=== PATIENT | female | born 1950 | race American Indian/Alaskan Native ===

== ENCOUNTER 2017-02-19 08:30 | Inpatient (IN) | payer MEDICARE ==
--- NOTE | 2017-02-12 11:00 | Anesthesia Consultation ---
Anesthesia Consult and Med Hx Date of service: 02/12/17 - Airway Anesthetic Teeth Evaluation: Dentures (upper and lower), Edentulous ROM Head & Neck: Adequate Mental/Hyoid Distance: Adequate Mallampati Class: Class II Intubation Access Assessment: Probably Good - Pre-Operative Health Status ASA Pre-Surgery Classification: ASA3 Proposed Anesthetic Plan: Epidural, Spinal Nerve Block: Femoral - Pulmonary Hx Smoking: Yes (CIGARETTES 1 PPW X 34 YRS (quit 2.5 yr)) Hx Asthma: Yes (FOR 24 YRS, stable w/ rare PRN inhaler use) SOB: No COPD: No Hx Sleep Apnea: No - Cardiovascular System Hx Hypertension: Yes (x 10 yrs, controlled w/ meds, no CP) Hx Coronary Artery Disease: No Hx Heart Attack/AMI: No Hx Angina: No Hx Heart Murmur: Yes (THE NURSE SAID SHE HEARD IT, PCP NEVER MENTIONED) Hx Peripheral Vascular Disease: No - Central Nervous System Hx Neuromuscular Disorder: Yes (arthritis) Hx Seizures: No CVA: No Hx Psychiatric Problems: No - Gastrointestinal Hx Gastroesophageal Reflux Disease: Yes (Mild) - Endocrine Hx End Stage Renal Disease: No Hx Cirrhosis: No Hx Liver Disease: No Hx Insulin Dependent Diabetes: No Hx Non-Insulin Dependent Diabetes: No - Other Systems Hx Alcohol Use: Yes (2 GLASSES OF WINE PER DAY) Hx Substance Use: No Hx Cancer: No
[2017-02-12 11:15] LABS: Basophils % (Auto) 0.7 % (0.0-1.8); Eosinophils % (Auto) 3.9 % (0.0-4.3); Hematocrit 38.1 % (30.3-42.9); Hemoglobin 12.6 gm/dl (10.1-14.3); Mean Corpuscular HGB Conc 33 % (30-34); Mean Corpuscular Hemoglobin 27 pg (28-32); Mean Corpuscular Volume 82 fl (79-97); Platelet Count 217 K/mm3 (140-440); Red Blood Count 4.65 M/mm3 (3.65-5.03); Red Cell Distribution Width 13.8 % (13.2-15.2); White Blood Count 6.6 K/mm3 (4.5-11.0)
[2017-02-12 11:30] LABS: Alanine Aminotransferase 14 units/L (7-56); Albumin/Globulin Ratio 1.2 %; Alkaline Phosphatase 87 units/L (35-129); Anion Gap 15 mmol/L; BUN/Creatinine Ratio 16.66; Bilirubin,Total 0.6 mg/dL (0.1-1.2); Blood Urea Nitrogen 10 mg/dL (7-17); Calcium 9.7 mg/dL (8.4-10.2); Carbon Dioxide 27 mmol/L (22-30); Chloride 101.1 mmol/L (98-107); Glucose 99 mg/dL (65-100); Potassium 3.7 mmol/L (3.6-5.0); Sodium 139 mmol/L (137-145); Total Protein 7.4 g/dL (6.3-8.2)
--- NOTE | 2017-02-18 21:07 | History and Physical Report ---
History of Present Illness Date of examination: 02/18/17 Date of admission: 02/19/17 Chief complaint: Pain right leg, history of revision to an arthroplasty. Pain is progressively worsening. History of present illness: Painful right total knee arthroplasty, revision type with pain over the anterior middle aspect of the tibia, knee joint with difficulty bearing weight. Progressively worsening over the last several months. Examination in the office revealed thinning of the anterior medial tibial cortex, patient is being admitted for revision of the tibial component, polyethylene exchange. Past History Past Medical History: COPD, hypertension Past Surgical History: total knee replacement Medications and Allergies Allergies Allergy/AdvReac Type Severity Reaction Status Date / Time No Known Allergies Allergy Verified 05/17/16 10:54 Home Medications Medication Instructions Recorded Confirmed Last Taken Type Albuterol Sulfate [Ventolin HFA] 2 puff IH Q4H PRN #1 hfa.aer.ad 03/25/1405/17/16 Rx Atorvastatin Calcium [Lipitor] 20 mg PO QHS 05/28/14 02/10/17 05/17/16 History Triamter/Hctz 37.5-25 mg 1 each PO DAILY 05/28/14 02/10/17 05/17/16 History [Maxzide-25] amLODIPine [Norvasc] 5 mg PO DAILY 05/28/14 02/10/17 05/17/16 History Meloxicam [Mobic] 15 mg PO PRN PRN 04/05/15 02/10/17 08/13/16 History Montelukast [Singulair] 10 mg PO QPM 04/05/15 02/10/17 05/17/16 History Aspirin [Adult Low Dose Aspirin EC] 81 mg PO QDAY 10/11/15 02/10/17 05/17/16 History HYDROcodone/APAP 5-325 [[place] 1 each PO Q6HR PRN #12 tablet 05/18/16 02/10/17 Unknown Rx 5/325] Active Meds: Active Medications Celecoxib (Celebrex) 200 mg PO PREOP NR Stop: 02/19/17 23:59 Famotidine (Pepcid) 20 mg IV PREOP NR Stop: 02/19/17 23:59 Gabapentin (Neurontin) 150 mg PO PREOP NR Stop: 02/19/17 23:59 Lactated Ringer's (Lactated Ringers) 1,000 mls @ 100 mls/hr IV DIRECT [facility] Vancomycin HCl (Vancomycin/Ns 1 Gm/250 Ml) 1 gm in 250 mls @ 166.667 mls/hr IV PREOP NR PRN Reason: Protocol Stop: 02/20/17 00:01 Midazolam HCl (Versed) 2 mg IV PREOP NR Stop: 02/19/17 23:59 Review of Systems All systems: negative Exam - Constitutional General appearance: Present: no acute distress, well-nourished - EENT Eyes: Present: PERRL ENT: hearing intact, clear oral mucosa - Neck Neck: Present: supple, normal ROM - Respiratory Respiratory effort: normal Respiratory: bilateral: CTA - Cardiovascular Heart Sounds: Present: S1 & S2. Absent: rub, click - Extremities Extremities: abnormal (Right knee with tenderness over the anterior medial proximal third of the tibia, 1+ medial lateral laxity. No joint effusion, range of motion 0110 degrees. No popliteal masses, patellofemoral joint appeared stable.) Peripheral Pulses: within normal limits - Abdominal General gastrointestinal: Present: soft, non-tender, non-distended, normal bowel sounds Female genitourinary: Present: normal - Integumentary Integumentary: Present: clear, warm, dry - Musculoskeletal Musculoskeletal: gait normal, strength equal bilaterally - Psychiatric Psychiatric: appropriate mood/affect, intact judgment & insight - Neurologic Neurologic: CNII-XII intact, moves all extremities Results - Labs CBC & Chem 7: 02/12/17 10:50 02/12/17 10:50 Assessment and Plan - Patient Problems (1) Painful total knee replacement Status: Acute Qualifiers: Encounter type: initial encounter Qualified Code(s): T84.84XA - Pain due to internal orthopedic prosthetic devices, implants and grafts, initial encounter; Z96.659 - Presence of unspecified artificial knee joint Plan to address problem: Revision of tibial component, with a longer intramedullary stem with cortical engagement and polyethylene exchange. Procedure, complications and outcome discussed with.
[~2017-02-19 08:30] MED LIST: LACTATED RINGERS 1,000 ML IV SCH; NEURONTIN PO NR; PEPCID IV NR; VANCOMYCIN/NS 1 GM/250 ML 1 GM/250 ML BAG IV NR; VERSED IV NR
--- NOTE | 2017-02-19 10:45 | Anesthesia Day of Surgery ---
Anesthesia Day of Surgery - Day of Surgery Patient Examined: Yes Patient H&P Reviewed: Yes Patient is NPO: Yes Beta Blockers: No
--- NOTE | 2017-02-19 12:03 | Admit Criteria Form ---
Admission Criteria Documentation: AMBULATORY SURGERY EXCEPTION CRITERIA Ambulatory Surgery Exception Criteria ( Place 'X' for any and all applicable criteria): Surgery or procedure performed on ambulatory basis may require inpatient stay for[A] ANY ONE of the following(1)(2)(3)(4)(5)(6)(7)(8)(9): [X] I. A preoperative situation, condition, or finding that warrants inpatient stay as indicated by ANY ONE of the following: [] a) Inpatient care needed because of severity of a disease or condition rather than the surgery (eg, severe cardiac or respiratory disease, severe infection) (15) (16 ) (17) (18) [] b) Emergent procedure (eg, angioplasty for acute ischemia)(19) [] c) Complex surgical approach or situation as indicated by ANY ONE of the following(3): [] i) Open approach needed instead of usual endoscopic, transcatheter, or other less invasive procedure [] ii) Difficult approach because of previous operation [] iii) Airway monitoring required after open neck procedures(20)(21) [] iv) Large mass requiring unusually extensive dissection [] v) Additional complicating feature requiring inpatient care (eg, drain management)(22(23): [X] d) Major surgery in a pt with high anesthetic risk as indicated by ANY ONE of the following (2)(3)(5)(7)(8): [X] i) ASA risk class III or higher (severe systemic disease impairing function) [D] [] ii) Advanced age (eg, older than 85 years)(14)(24) [] iii) Symptomatic heart failure(25) [] iv) Symptomatic asthma or COPD(8)(21) [] v) Morbid obesity with hemodynamic or respiratory problems(20)( 21)(26)(27) [] vi) Obstructive sleep apnea(20)(21) [] vii) Former premature infants who are younger than 60 weeks [] viii) High risk for severe postoperative abnormalities (eg, severe postoperative hypocalcemia after parathyroidectomy for severe hyperparathyroidism)(27)( 28) [] ix) Unstable angina(25) [] e) Drug-related risk requiring inpatient stay as indicated by ANY ONE of the following(5)(10)(14)(32)(33) [] i) Procedure requires discontinuing drugs or other therapy (eg , antiarrhythmic medication, antiseizure medication), which necessitates inpatient observation or treatment.(18)(31) [] ii) Major surgery and high risk drug use as indicated by ANY ONE of the following: [] 1) Active abuse of cocaine or similar drug [] 2) Monoamine oxidase inhibitor use [] 3) Other drug identified as posing risk [] f) Inadequate outpatient care situation as indicated by ANY ONE of the following(5)(10)(14)(32)(33) [] i) Patient lives remote from medical facility and procedure has urgent complication potential, and temporary nearby residence cannot be arranged [] ii) Patient will have postprocedure incapacitation and inadequate assistance at home, or alternative level of care cannot be arranged. [] iii) Patient will have long general anesthesia or procedure side effect resolution time, and competent person to stay with patient on first postoperative night at home or alternative level of care cannot be arranged. []iv) Other inadequate outpatient situation that cannot be handled by other means [] II. A perioperative event, condition, or finding that warrants inpatient stay as indicated by ANY ONE of the following (1)(2)(3): [] a) Inadequate physiologic recovery: cardiovascular, respiratory, or hemodynamic status not normal or near preoperative baseline(18) [] b) Hemodynamic instability [] c) Patient not alert with near normal or baseline mental status [] d) Temperature not normal or as expected and not appropriate for outpatient treatment of condition [] e) Ambulatory or appropriate activity level status not yet achieved post procedure [E](34)(35)(36) [] f) Operative site not appropriate (eg, unexpected or excessive drainage or bleeding) [] g) Postoperative effects not resolved or adequately managed (eg, significant pain or vomiting not appropriate for outpatient or next level of care)(10)(12) [] h) Complicating features requiring inpatient care as indicated by ANY ONE of the following(37): [] i) Severe complications of procedure (eg, bowel injury, airway compromise, vascular injury,severe hemorrhage) [] ii) Extensive (eg, dissection far beyond usual scope of procedure ) or prolonged (eg, 120 minutes beyond usual) surgery needed requiring inpatient postoperative care [] iii) Conversion to an open or complex procedure that requires inpatient care (eg, open vs laparoscopic cholecystectomy, abdominal vs vaginal hysterectomy)(38) [] iv) Comorbid condition or test result identified during or post procedure that requires inpatient care (7) [] v) Malignant hyperthermia(30) [] vi) Other complicating feature requiring inpatient care(22)(23) Inpatient stay may be needed until ALL of the following are present (1)(2)(3)(4) (5)(6)(10)(14)(33)(40): []a) Physiologic recovery: cardiovascular, respiratory, and hemodynamic status normal or near preoperative baseline []b) Hemodynamic stability []c) Patient alert, with near normal or baseline mental status []d) Temperature appropriate: patient afebrile or temperature appropriate for outpt treatment of condition []e) Activity level appropriate: ambulatory or appropriate activity level post procedure []f) Operative site appropriate as indicated by ALL of the following: []i) Site dry or with expected drainage []ii) Any blood noted is as expected for procedure. []g) Postoperative effects resolved or managed as indicated by ALL of the following: []i) Pain management appropriate for outpatient (or next level of) care(10) []ii) Minimal nausea and vomiting: if present, successfully treated with oral medication(12) []iii) Headache, dizziness, or drowsiness (if present) are mild. []h) Voiding status acceptable as indicated by ANY ONE of the following: []i) Voiding spontaneously []ii) No voiding but instructions given for follow-up in 6 to 8 hours []iii) Urinary catheter in place, and instructions given for follow-up []i) Complicating features requiring inpatient care manageable at a lower level of care(37) []j) Comorbid conditions manageable at a lower level of care(37) The original [employer] content created by [employer] has been revised. The portions of the content which have been revised are identified through the use of italic text or in bold, and [employer] [employer] has neither reviewed nor approved the modified material. All other unmodified content is copyright [employer] Please see references footnoted in the original [employer] edition 2016 Admission Criteria Met: Yes
[2017-02-19] MEDS ORDERED: NEOSPORIN GU IR ONE ×2 (13:26→15:44)
[2017-02-19] MEDS ORDERED: XYLOCAINE MPF 2% ONE ×4 (14:10→17:32)
[2017-02-19] MEDS ORDERED: DIPRIVAN 10 MG/ML IV ONE ×2 (14:10→15:26)
[2017-02-19] MEDS ORDERED: MARCAINE-EPI 0.5%-1:200,000 INFILTRATI ONE (14:19)
[2017-02-19] MEDS ORDERED: VERSED ONE (15:21)
[2017-02-19] MEDS ORDERED: NACL 0.9% IR ONE ×2 (15:44)
[2017-02-19] MEDS ORDERED: PROAIR IH PRN (17:10)
[2017-02-19] MEDS ORDERED: PROVENTIL IH PRN (17:21)
[2017-02-19] MEDS ORDERED: LACTATED RINGERS 1,000 ML ONE (17:32)
[2017-02-19] MEDS ORDERED: SINGULAIR PO SCH (18:00)
--- NOTE | 2017-02-19 18:34 | Post Anesthesia Evaluation ---
- Post Anesthesia Evaluation Patient Participated: Yes Airway Patent: Yes Stable Respiratory Function: Yes Nausea/Vomiting: No Temp > 96.8F: Yes Pain Manageable: Yes Adequeate Hydration: Yes Anesthesia Complications: No
[2017-02-19] MEDS ORDERED: MORPHINE IV PRN (20:05)
[2017-02-19] MEDS ORDERED: SODIUM CHLORIDE FLUSH SYRINGE 10 ML IV PRN (20:05)
[2017-02-19] MEDS ORDERED: TORADOL IV PRN (20:05)
[2017-02-19] MEDS ORDERED: TYLENOL PO PRN (20:05)
[2017-02-19] MEDS ORDERED: PHENERGAN PR PRN (20:05)
[2017-02-19] MEDS ORDERED: AMBIEN PO PRN (20:05)
--- NOTE | 2017-02-19 21:24 | Operative Report ---
PREOPERATIVE DIAGNOSIS: Painful total knee arthroplasty, right side. POSTOPERATIVE DIAGNOSIS: Painful total knee arthroplasty, right side with impending stem penetration into the medial tibial cortex. OPERATIVE PROCEDURE: Revision tibial component and polyethylene exchange, total knee arthroplasty, right side. SURGEON: Neeru Goodson M.D. [employer] OPERATOR: Lindsay Narayan CSA. ANESTHESIA: Regional block with general sedation. TOURNIQUET TIME: One hour and thirty minutes. PROCEDURE IN DETAIL: The patient was taken to surgery suite, satisfactory analgesia obtained with regional block, supplemented with general sedation. Right lower extremity was prepped with ChloraPrep, satisfactorily draped. The correct patient, surgical site, and procedures are confirmed. Tourniquet inflated to 300 mmHg pressure. Incision was made anteriorly over the knee, deepened to the thickness of skin. Medial parapatellar incision was made and the knee joint entered. The knee joint contained approximately 100 mL of fluid with some discoloration of the synovial membrane. Cultures were made for aerobic and anaerobic cultures and Gram stain and tissue specimen for biopsy. The tibial polyethylene was then elevated and was removed. Following this, the tibial component was extracted and the remaining methyl methacrylate was thoroughly debrided. The intramedullary canal of the femur was then reamed to 13 mm diameter to accommodate 150 mm stem. With the reaming was completed, fluoroscopy was carried out showing the reamer engaged into the medullary canal and penetration into the cortex was identified. Following this, with the tibial resection guide in place, tibial surface was then resected. Trial component was applied and the fit appeared satisfactory. However, there was still an approximately 3 mm gap present over the medial tibial plateau. Therefore, it was elected to use a 5 mm augment. With the guide in place, the medial tibial plateau was resected as to allow and augmented tibial plateau with 5 mm spacer. Trial reduction again carried out with the trial component in place. A #3 and 19 mm polyethylene spacer which appeared giving satisfactory stability and fit. The components were removed. Wound was then thoroughly irrigated. The #3 tibial component with a 150 mm stem, 12 mm diameter was cemented in place. Over the medial and anteromedial surfaces had some degree of overlapping, this was built up with methyl methacrylate. Wound was again irrigated to remove any debris. Trial reduction was carried out and the 19 mm thick spacer appeared giving optimal stability and therefore polyethylene was then exchanged to a PCL substituting design polyethylene component, 19 mm thick and was locked in place. Following this, wound was closed in layers in the standard fashion using 0 Vicryl, 2-0 Vicryl and rosamaria. The quadriceps snip which was carried out to prevent patellar tendon rupture was then repaired in the standard fashion using 0 Vicryl. At the completion of procedure, counts were accurate. Total blood loss minimal. Total tourniquet time, 1 hour 30 minutes. Knee appeared stable, both medial and lateral, and anterior and posterior, and postop range of motion 0-120 degrees. JOB# [id number] RVN/NTS
[2017-02-19] MEDS: ZOFRAN IV PRN (22:36)
[2017-02-19] MEDS: ASPIRIN PO SCH (22:40)
[2017-02-19] MEDS: D5W/0.45% NACL/KCL 20 MEQ 20 MEQ/1,000 ML BAG IV SCH (22:40)
[2017-02-19] MEDS: ANCEF/NS 1 GM/50 ML 1 GM/50 ML BAG IV SCH (22:40)
[2017-02-19] MEDS: PERCOCET 5/325 PO PRN (23:10)
[2017-02-20] MEDS: ANCEF/NS 1 GM/50 ML 1 GM/50 ML BAG IV SCH (06:04)
[2017-02-20 06:12] LABS: Hematocrit 34.2 % (30.3-42.9); Hemoglobin 11.4 gm/dl (10.1-14.3)
[2017-02-20 06:31] LABS: Anion Gap 16 mmol/L; Blood Urea Nitrogen 10 mg/dL (7-17); Calcium 8.7 mg/dL (8.4-10.2); Carbon Dioxide 24 mmol/L (22-30); Chloride 101.8 mmol/L (98-107); Glucose 146 mg/dL (65-100); Potassium 3.5 mmol/L (3.6-5.0); Sodium 138 mmol/L (137-145)
[2017-02-20] MEDS: OxyCONTIN PO SCH ×3 (07:06→22:17)
--- NOTE | 2017-02-20 08:44 | XRay Report ---
Right knee 3 views. Findings: A Total knee prosthesis is demonstrated in satisfactory position with no radiographic signs of complications.
[2017-02-20] MEDS ORDERED: LOVENOX SUB-Q SCH (10:00)
[2017-02-20] MEDS ORDERED: MAXZIDE-25 PO SCH (10:00)
[2017-02-20] MEDS ORDERED: NORVASC PO SCH (10:00)
[2017-02-20] MEDS: ZOFRAN IV PRN (11:09)
[2017-02-20] MEDS: THERAGRAN Tab PO SCH (11:12)
[2017-02-20] MEDS: ASPIRIN PO SCH ×2 (11:12→22:17)
[2017-02-20] MEDS: D5W/0.45% NACL/KCL 20 MEQ 20 MEQ/1,000 ML BAG IV SCH ×2 (12:22→22:18)
--- NOTE | 2017-02-20 13:16 | Progress Note ---
Subjective Date of service: 02/20/17 Interval history: 1st POD after total knee arthroplasty Patient is in the bed, relatively comfortable. Pain is well controlled with pain meds. Had near-syncope episode, when ambulated with physical therapist earlier this AM. Latter is most likely attributed to osthostatic hypotention. BP was in the 90s systolic. Feels better now. No anesthesia complications Objective - Constitutional Vitals: Vital Signs - 12hr 02/20/17 02/20/17 02/20/17 02:12 03:57 08:00 Temperature 98.2 F 98.4 F 98.1 F Pulse Rate [ 86 86 78 Brachial] Respiratory 20 20 18 Rate Blood Pressure 132/74 136/74 107/68 [Left Arm] O2 Sat by Pulse 100 100 Oximetry - Labs CBC & Chem 7: 02/20/17 05:49 02/20/17 05:49 Labs: Abnormal lab results 02/20/17 Range/Units 05:49 Potassium 3.5 L (3.6-5.0) mmol/L Creatinine 0.5 L (0.7-1.2) mg/dL Glucose 146 H (65-100) mg/dL
[2017-02-20] MEDS: PERCOCET 5/325 PO PRN ×2 (14:29→20:35)
--- NOTE | 2017-02-20 17:22 | Progress Note ---
Assessment and Plan continue PT and observation, hopefully dc in am Subjective Date of service: 02/20/17 Interval history: c/o nausea and vomiting after getting up earlier today, doing better now... Objective Vital signs: Vital Signs - 12hr 02/20/17 02/20/17 08:00 16:00 Temperature 98.1 F 98.3 F Pulse Rate [ 78 84 Brachial] Respiratory 18 18 Rate Blood Pressure 107/68 115/63 [Left Arm] O2 Sat by Pulse 94 Oximetry - Labs CBC & BMP: 02/20/17 05:49 02/20/17 05:49 Labs: Abnormal lab results 02/20/17 Range/Units 05:49 Potassium 3.5 L (3.6-5.0) mmol/L Creatinine 0.5 L (0.7-1.2) mg/dL Glucose 146 H (65-100) mg/dL
--- NOTE | 2017-02-20 17:31 | Consultation ---
History of Present Illness - Reason for Consult Consult date: 02/20/17 Requesting physician: JONATAN SORENSON - History of Present Illness 66 YO Female with HTN, COPD,HLD, Asthma, OA admitted for Right TKR. Pt seen and evaluated. Pt denies fever, chills, CP, palpitation, NVD, syncope. Pt states that her knee pain is controlled, but acknowledges nausea. Past History Past Medical History: COPD, hypertension Past Surgical History: total knee replacement Social history: single. denies: smoking, alcohol abuse Family history: diabetes, hypertension Medications and Allergies Allergies Allergy/AdvReac Type Severity Reaction Status Date / Time No Known Allergies Allergy Verified 05/17/16 10:54 Home Medications Medication Instructions Recorded Confirmed Last Taken Type Albuterol Sulfate [Ventolin HFA] 2 puff IH Q4H PRN #1 hfa.aer.ad 03/25/1402/19/17 08:30 Rx Atorvastatin Calcium [Lipitor] 20 mg PO QHS 05/28/14 02/19/17 02/18/17 21:00 History Triamter/Hctz 37.5-25 mg 1 each PO DAILY 05/28/14 02/19/17 02/18/17 08:30 History [Maxzide-25] amLODIPine [Norvasc] 5 mg PO DAILY 05/28/14 02/19/17 02/19/17 08:30 History Meloxicam [Mobic] 15 mg PO PRN PRN 04/05/15 02/19/17 6 Months Ago History Montelukast [Singulair] 10 mg PO QPM 04/05/15 02/19/17 02/18/17 21:00 History Aspirin [Adult Low Dose Aspirin EC] 81 mg PO QDAY 10/11/15 02/19/17 02/12/17 09: 00 History HYDROcodone/APAP 5-325 [[place] 1 each PO Q6HR PRN #12 tablet 05/18/16 02/19/17 17:00 Rx 5/325] Active Meds: Active Medications Acetaminophen (Tylenol) 650 mg PO Q4H PRN PRN Reason: Pain MILD(1-3)/Fever >100.5/[place] Albuterol (Proventil) 2.5 mg IH Q4HRT PRN PRN Reason: Shortness Of Breath Amlodipine Besylate (Norvasc) 5 mg PO DAILY [facility] Last Admin: 02/20/17 15:24 Dose: Not Given Aspirin (Aspirin) 325 mg PO BID [facility] Last Admin: 02/20/17 11:12 Dose: 325 mg Atorvastatin Calcium (Lipitor) 20 mg PO QHS [facility] Last Admin: 02/19/17 22:40 Dose: 20 mg Celecoxib (Celebrex) 100 mg PO BID [facility] Last Admin: 02/20/17 11:12 Dose: 100 mg Enoxaparin Sodium (Lovenox) 40 mg SUB-Q QDAY [facility] Last Admin: 02/20/17 11:12 Dose: 40 mg Potassium Chloride/Dextrose/Sod Cl (D5w/0.45% Nacl/Kcl 20 Meq) 20 meq in 1,000 mls @ 75 mls/hr IV DIRECT [facility] Last Admin: 02/20/17 12:22 Dose: 75 mls/hr Ketorolac Tromethamine (Toradol) 30 mg IV Q6H PRN PRN Reason: Pain, Moderate (4-6) Stop: 02/24/17 20:04 Montelukast Sodium (Singulair) 10 mg PO QPM [facility] Last Admin: 02/19/17 22:40 Dose: 10 mg Morphine Sulfate (Morphine) 3 mg IV Q4H PRN PRN Reason: Pain , Severe (7-10) Last Admin: 02/19/17 20:25 Dose: 3 mg Multivitamins (Theragran Tab) 1 each PO QDAY [facility] Last Admin: 02/20/17 11:12 Dose: 1 each Ondansetron HCl (Zofran) 4 mg IV Q8H PRN PRN Reason: Nausea And Vomiting Last Admin: 02/20/17 11:09 Dose: 4 mg Oxycodone HCl (Oxycontin) 10 mg PO Q12HR [facility] Last Admin: 02/20/17 10:00 Dose: Not Given Oxycodone/Acetaminophen (Percocet 5/325) 1 tab PO Q6H PRN PRN Reason: Pain, Moderate (4-6) Last Admin: 02/20/17 14:29 Dose: 1 tab Promethazine HCl (Phenergan) 25 mg [place] Q6H PRN PRN Reason: Nausea And Vomiting Sodium Chloride (Sodium Chloride Flush Syringe 10 Ml) 10 ml IV PRN PRN PRN Reason: LINE FLUSH Triamterene/HCTZ (Maxzide-25) 1 each PO DAILY [facility] Last Admin: 02/20/17 15:24 Dose: Not Given Zolpidem Tartrate (Ambien) 5 mg PO QHS PRN PRN Reason: Sleep Review of Systems All systems: negative Gastrointestinal: nausea Exam - Constitutional Vitals: Temp Pulse Resp BP Pulse Ox 98.3 F 84 18 115/63 94 02/20/17 16:00 02/20/17 16:00 02/20/17 16:00 02/20/17 16:00 02/20/17 16:00 General appearance: Present: no acute distress, well-nourished - EENT Eyes: Present: PERRL ENT: hearing intact, clear oral mucosa - Neck Neck: Present: supple, normal ROM - Respiratory Respiratory effort: normal Respiratory: bilateral: CTA - Cardiovascular Heart Sounds: Present: S1 & S2. Absent: rub, click - Extremities Extremities: pulses symmetrical, No edema Extremity abnormal: other (R Knee immobilized.) Peripheral Pulses: within normal limits - Abdominal General gastrointestinal: Present: soft, non-tender, non-distended, normal bowel sounds Female genitourinary: Present: normal - Integumentary Integumentary: Present: clear, warm, dry - Musculoskeletal Musculoskeletal: gait normal, strength equal bilaterally - Psychiatric Psychiatric: appropriate mood/affect, intact judgment & insight - Neurologic Neurologic: CNII-XII intact, moves all extremities Results - Labs CBC & Chem 7: 02/20/17 05:49 02/20/17 05:49 Labs: Abnormal lab results 02/20/17 Range/Units 05:49 Potassium 3.5 L (3.6-5.0) mmol/L Creatinine 0.5 L (0.7-1.2) mg/dL Glucose 146 H (65-100) mg/dL Assessment and Plan - Patient Problems (1) Asthma Current Visit: Yes Status: Acute Qualifiers: Asthma severity: A Asthma complication type: A Plan to address problem: controlled, resume home medication, (2) COPD (chronic obstructive pulmonary disease) with emphysema Current Visit: No Status: Acute Qualifiers: Emphysema type: E Plan to address problem: pulmonary toilet, incentive spirometer, early ambulation, (3) HTN (hypertension) Current Visit: No Status: Acute Qualifiers: Hypertension type: essential hypertension Qualified Code(s): I10 - Essential (primary) hypertension Plan to address problem: controlled, monitor bp q shift, continue current therapy (4) DVT prophylaxis Current Visit: Yes Status: Acute Plan to address problem: As per primary team.
[2017-02-21] MEDS: PERCOCET 5/325 PO PRN (09:01)
[2017-02-21 09:10] VITALS: BP 119/74
--- NOTE | 2017-02-21 10:28 | Discharge Summary ---
Providers - Providers Date of Admission: 02/19/17 10:30 Date of discharge: 02/21/17 Attending physician: JONATAN SORENSON 02/19/17 00:01 Consult to Case Management [CONS] Routine Services Needed at Discharge: Home Health Services Notified:: LEARNING SUPPORT AIDE Consult to Physician [CONS] Routine Consulting Provider: SRINI SAVAGE Reason For Exam: for post op medical management Place consult to:: DR. VIRAMONTES Notified:: OFFICE Phone number called:: [phone] Was contact made?: Yes Time called:: 13:47 Comment:: CONSULT COMPLETED - [place] Physical Therapy Evaluation and Treat [CONS] Routine Comment: Reason For Exam: s/p Right total knee revision Mode of Transport?: Wheelchair Weight bearing status?: Partial wt bearing Assistive devices?: Yes If so list: Walker 02/19/17 20:05 Physical Therapy Evaluation and Treat [CONS] Routine Comment: Reason For Exam: post op Primary care physician: NUZHAT REESE Hospitalization Reason for admission: Painful total knee arthroplasty, tibial component. Condition: Stable Procedures: revision tibial component, polyethylene exchange Disposition: DISCHARGED TO HOME OR SELFCARE - Discharge Diagnoses (1) Painful total knee replacement Status: Acute Qualifiers: Encounter type: initial encounter Qualified Code(s): T84.84XA - Pain due to internal orthopedic prosthetic devices, implants and grafts, initial encounter; Z96.659 - Presence of unspecified artificial knee joint Core Measure Documentation - Palliative Care Palliative Care/ Comfort Measures: Not Applicable - Core Measures Any of the following diagnoses?: none Exam - Constitutional Vitals: Temp Pulse Resp BP Pulse Ox 98.3 F 89 22 119/74 90 02/21/17 08:00 02/21/17 08:00 02/21/17 08:00 02/21/17 08:00 02/21/17 08:00 Plan Activity: no driving until cleared by PCP, up only with assistance, fall precautions Weight Bearing Status: Weight Bear as Tolerated Diet: regular Wound: per your surgeon's advice Follow up with: NUZHAT REESE MD [Primary Care Provider] - 7 Days
--- NOTE | 2017-02-21 10:28 | Progress Note ---
Assessment and Plan - Patient Problems (1) Painful total knee replacement Status: Acute Qualifiers: Encounter type: initial encounter Qualified Code(s): T84.84XA - Pain due to internal orthopedic prosthetic devices, implants and grafts, initial encounter; Z96.659 - Presence of unspecified artificial knee joint Plan to address problem: Doing well, we'll discharge home with outpatient rehabilitation, has needed DMEs.. Followup 7-10 days Subjective Date of service: 02/21/17 Interval history: Status post total knee revision tibial component, doing well, no pain, out of bed. No evidence of DVT. Objective Vital signs: Vital Signs - 12hr 02/20/17 02/21/17 23:00 08:00 Temperature 98.1 F 98.3 F Pulse Rate [ 93 H 89 Brachial] Respiratory 20 22 Rate Blood Pressure 126/68 119/74 [Left Arm] O2 Sat by Pulse 100 90 Oximetry - Labs CBC & BMP: 02/20/17 05:49 02/20/17 05:49
[2017-02-21] MEDS: ASPIRIN PO SCH (10:39)
[2017-02-21] MEDS: OxyCONTIN PO SCH (10:39)
[2017-02-21] MEDS: THERAGRAN Tab PO SCH (10:40)
== END 2017-02-21 16:20 | disposition home health service (06) | DRG 468 ==
LOC: EDSTATUS 08:30 → 3A 10:30 → 2B-SURG 17:44
PROVIDERS: ADMIT Orthopaedic Surgery; ATTEND Orthopaedic Surgery
PROC: 0SPV0JZ Removal of Synthetic Substitute from Right Knee Joint, Tibial Surface, Open Approach (ICD-10-PCS; principal; 2017-02-19)
PROC: 0SRV0JZ Replacement of Right Knee Joint, Tibial Surface with Synthetic Substitute, Open Approach (ICD-10-PCS; 2017-02-19)
PROC: 0SWV0JZ Revision of Synthetic Substitute in Right Knee Joint, Tibial Surface, Open Approach (ICD-10-PCS; 2017-02-19)
DX: T84.84XA Pain due to internal orthopedic prosthetic devices, implants and grafts, initial encounter (principal); Z96.651 Presence of right artificial knee joint; I10 Essential (primary) hypertension; E78.5 Hyperlipidemia, unspecified; J45.909 Unspecified asthma, uncomplicated; J44.9 Chronic obstructive pulmonary disease, unspecified; Z79.82 Long term (current) use of aspirin; Z83.3 Family history of diabetes mellitus; Z82.49 Family history of ischemic heart disease and other diseases of the circulatory system
CPT/HCPCS: 36415; 62324; 64450; 80048; 80053; 85014; 85018; 85025; 87075; 87116; 88305; A4217; A9270-GY; C1776; G8978-GP; G8979-GP; J0690; J1650; J1885; J2250; J2270; J2405; J2704; J3370; J7120